=== PATIENT | male | born 1955 | race Caucasian/White ===

== ENCOUNTER 2018-03-25 06:59 | Day surgery (SDC) | payer BC, MEDICARE ==
[2018-03-24 08:16] VITALS: BMI 34.4
[~2018-03-25 06:59] MED LIST: LACTATED RINGERS 1,000 ML IV SCH
[2018-03-25 07:29] VITALS: RESP 18; TEMP 97.6
[2018-03-25] MEDS ORDERED: LIDOCAINE 1% 20 ML VIAL (10MG/ML) FOR IV START INTRADERMA ONE (07:38)
[2018-03-25 07:40] LABS: Glucose,Whole Blood 111 mg/dL (75-99)
[2018-03-25] MEDS ORDERED: PROPOFOL 10 MG/ML 20 ML VIAL IV ONE (08:03)
[2018-03-25] MEDS ORDERED: LIDOCAINE 1% INJ 10MG/ML (20 ML MDV) ONE (08:03)
--- NOTE | 2018-03-25 08:06 | P.GSHP ---
History of Present Illness H&P Date: 03/25/18 Chief Complaint: Colon cancer screening, polyps Patient here today for colonoscopy. Last colonoscopy 2012. Patient has a history of adenomatous colon polyps. Last colonoscopy showed mild colitis as well. Patient is on transplant medication. Past Medical History Past Medical History: GERD/Reflux, Hyperlipidemia, Hypertension Additional Past Medical History / Comment(s): SOB w/ exertion,daily steroid History of Any Multi-Drug Resistant Organisms: None Reported Past Surgical History: Cholecystectomy, Heart Catheterization With Stent, Hernia Repair Additional Past Surgical History / Comment(s): kidney transplant October 2012,AV shunt left arm,hernia repair x2 Past Anesthesia/Blood Transfusion Reactions: No Reported Reaction Date of Last Stent Placement:: 2001 Smoking Status: Former smoker - Past Family History Mother Family Medical History: No Reported History Medications and Allergies Home Medications Medication Instructions Recorded Confirmed Type Aspirin 81 mg PO DAILY 03/24/18 03/25/18 History Atorvastatin Calcium [Lipitor] 40 mg PO HS 03/24/18 03/25/18 History Docusate [Colace] 100 mg PO BID 03/24/18 03/25/18 History Ergocalciferol (Vitamin D2) 50,000 unit PO Q30D 03/24/18 03/25/18 History [Drisdol] Fish Oil/Dha/Epa [Fish Oil 1,200 1 each PO BID 03/24/18 03/25/18 History mg Fish Oil] Lisinopril [Prinivil] 10 mg PO HS 03/24/18 03/25/18 History Metoprolol Tartrate 25 mg PO BID 03/24/18 03/25/18 History Montelukast [Singulair] 10 mg PO HS 03/24/18 03/25/18 History Multivitamins, Thera [Multivitamin 1 tab PO DAILY 03/24/18 03/25/18 History (formulary)] Mycophenolate Sodium Dr [Myfortic] 180 mg PO BID 03/24/18 03/25/[address] [Myfortic] 360 mg PO BID 03/24/18 03/25/18 History Omeprazole [PriLOSEC] 20 mg PO AC-BRKFST 03/24/18 03/25/18 History Tacrolimus [Prograf] 2 mg PO BID 03/24/18 03/25/18 History amLODIPine [Norvasc] 10 mg PO QA 03/24/18 03/25/18 History predniSONE 5 mg PO QAM 03/24/18 03/25/18 History Allergies Allergy/AdvReac Type Severity Reaction Status Date / Time cephalexin [From Keflex] Allergy Rash/Hives Verified 03/25/18 07:20 Surgical - Exam Vital Signs Temp Pulse Resp BP Pulse Ox 97.6 F 79 18 139/79 94 L 03/25/18 07:23 03/25/18 07:23 03/25/18 07:23 03/25/18 07:23 03/25/18 07:23 Physical exam: General: Well-developed, well-nourished HEENT: Normocephalic, sclerae nonicteric Abdomen: Nontender, nondistended Extremities: No edema Neuro: Alert and oriented Results - Labs Abnormal Lab Results - Last 24 Hours (Table) 03/25/18 Range/Units 07:34 POC Glucose (mg/dL) 111 H (75-99) mg/dL Assessment and Plan (1) Colon cancer screening Narrative/Plan: Will proceed with colonoscopy at this time. Current Visit: Yes Status: Acute Code(s): Z12.11 - ENCOUNTER FOR SCREENING FOR MALIGNANT NEOPLASM OF COLON SNOMED Code(s): 425743916
--- NOTE | 2018-03-25 08:21 | P.PCN ---
Date of Procedure: 03/25/18 Procedure(s) Performed: PREOPERATIVE DIAGNOSIS: Colon cancer screening POSTOPERATIVE DIAGNOSIS: Diverticulosis PROCEDURE: Colonoscopy ANESTHESIA: MAC SURGEON: Ray Roblero M.D. SPECIMENS: None ENDOSCOPIC PROCEDURE: The patient was placed on the endoscopy table in the left decubitus position. The Olympus colonoscope was inserted into the anus and passed under direct visualization to the base of the cecum. The appendiceal orifice was visualized. From that point the scope was slowly withdrawn inspecting all surfaces carefully. There were no neoplastic inflammatory or polypoid lesions throughout the cecum, ascending, transverse, descending, sigmoid and rectum. There was moderate left sided diverticulosis noted. Digital rectal examination was normal. The patient was taken to the recovery room in stable condition per anesthesia guidelines. RECOMMENDATIONS: Increase fiber. Follow-up colonoscopy 5 years.
[2018-03-25 09:06] VITALS: BP 130/79; PULSE 67
== END 2018-03-25 09:24 | disposition home or self-care (01) ==
LOC: ORWHC2ENDO 06:59
PROVIDERS: ATTEND Surgery
DX: Z12.11 Encounter for screening for malignant neoplasm of colon (principal); K57.30 Diverticulosis of large intestine without perforation or abscess without bleeding; K21.9 Gastro-esophageal reflux disease without esophagitis; I25.10 Atherosclerotic heart disease of native coronary artery without angina pectoris; I10 Essential (primary) hypertension; E78.5 Hyperlipidemia, unspecified; Z95.5 Presence of coronary angioplasty implant and graft; Z86.010 Personal history of colon polyps; Z87.891 Personal history of nicotine dependence; Z79.82 Long term (current) use of aspirin; Z94.0 Kidney transplant status; Z88.1 Allergy status to other antibiotic agents; Z79.899 Other long term (current) drug therapy
CPT/HCPCS: 45378; J2001; J2704